=== PATIENT | female | born 1960 | race Two or more races ===

== ENCOUNTER 2025-03-25 09:42 | Outpatient (CLI) | payer OTHER | END 2025-03-25 09:53 | disposition home or self-care (01) | LOC: MAMO-SONO 09:42 | DX: N63.0 Unspecified lump in unspecified breast (principal); Z12.31 Encounter for screening mammogram for malignant neoplasm of breast ==

== ENCOUNTER 2025-05-20 09:25 | Outpatient (CLI) | payer OTHER | END 2025-05-20 09:26 | disposition home or self-care (01) | LOC: NUCLEAR 09:25 | DX: Z13.820 Encounter for screening for osteoporosis (principal); M81.0 Age-related osteoporosis without current pathological fracture ==